=== PATIENT | female | born 1995 | race Caucasian/White ===

== ENCOUNTER 2017-08-19 18:04 | Outpatient (CLI) | payer MEDICAID ==
[~2017-08-19] VITALS: Ht 157.5 cm; Wt 61.1 kg
[2017-08-19 18:31] VITALS: Ht 157.5 cm; Wt 61.1 kg
[2017-08-19 19:00] VITALS: BP 113/55; PULSE 75; RESP 16
--- NOTE | 2017-08-19 19:12 | RADRPT ---
PROCEDURE: US OB. CLINICAL INDICATION: Size and dates , labor TECHNIQUE: Multiple sonographic images of the pelvis and gravid uterus were obtained. The images were reviewed on a PACS workstation. COMPARISON: No prior studies are available for comparison. FINDINGS: There is a single viable intrauterine gestation. Cardiac activity is present with 130 beats per min nahum. There is a vertex presentation. The placenta is anterior. There is no evidence for an abruption or placenta previa. Measurements were made in order to determine age. The results are as follows: BPD =7.2 cm HC =26.9 cm AC =25.6 cm FL =5.5 cm Estimated gestational age of approximately 29 weeks and 2 days based on ultrasound measurements. Clinical age: 29 weeks and 4 days. The estimated date of delivery is 11/02/2017, based on ultrasound measurements. The EFW = 1394 g, 32%, based on LMP age. RPTAT: AA IMPRESSION: Single viable intrauterine gestation of approximately 29 weeks and 2 days based on ultrasound measu rements. .Chris Rossi MD, MD Date Time Electronically viewed and signed by .Chris Rossi MD, on 08/19/2017 19:12 .S/
--- NOTE | 2017-08-19 19:35 | RADRPT ---
PROCEDURE: US OB biophysical profile. Ultrasound cervix CLINICAL INDICATION: decreased movements, PTL TECHNIQUE: Multiple sonographic images of the pelvis were obtained. In addition, transvaginal purnima ges of the cervix were obtained. The images were reviewed on a PACS workstation. COMPARISON: No prior studies are available for comparison. FINDINGS: There is a single viable intrauterine gestation. Cardiac activity is present with 139 beats per min nahum. There is a vertex presentation. The placenta is anterior. There is no evidence of placental abruption. There is a normal amount of amniotic fluid with an KARSON = 17.7 cm. The cervix measures 3.6 cm in length. Biophysical profile: movement 2/2 tone 2/2. breathing 2/2 KARSON 2/2 Total 06/18 RPTAT: AA . IMPRESSION: Normal biophysical profile. Cervix measures 3.6 cm in length. .Chris Rossi MD, MD Date Time Electronically viewed and signed by .Chris Rossi MD, on 08/19/2017 19:35 .S/
[2017-08-19 22:10] LABS: BASOPHILS % 0.2 % (0.0-2.0); EOSINOPHILS # 0.1 10^3/ul (0.0-0.5); EOSINOPHILS % 0.7 % (0.0-7.0); HEMATOCRIT 35.2 % (37.0-47.0); LYMPHOCYTES # 1.8 10^3/ul (0.8-2.9); LYMPHOCYTES % 13.9 % (18.0-55.0); MEAN CORPUSCULAR HEMOGLOBIN 30.5 pg (29.0-33.0); MEAN CORPUSCULAR HGB CONC 34.1 g/dl (32.0-37.0); MEAN CORPUSCULAR VOLUME 89.3 fl (72.0-104.0); MEAN PLATELET VOLUME 9.9 fl (7.4-10.4); MONOCYTE # 0.6 10^3/ul (0.3-0.9); MONOCYTES % 5.1 % (0.0-13.0); NEUTROPHILS % 79.4 % (30.0-74.0); PLATELET COUNT 191 10^3/UL (140-415); RED BLOOD COUNT 3.94 10^6/ul (4.20-5.40); WHITE BLOOD COUNT 12.6 10^3/ul (4.8-10.8)
[2017-08-19 22:18] LABS: ADD UMIC YES; UR ASCORBIC ACID NEGATIVE (NEGATIVE); UR BACTERIA FEW /HPF (NONE SEEN); UR BILIRUBIN (Dip) NEGATIVE (NEGATIVE); UR BLOOD (Dip) 1+ mg/dL (NEGATIVE); UR CLARITY CLOUDY (CLEAR); UR COLOR YELLOW (YELLOW); UR GLUCOSE (Dip) NEGATIVE (NEGATIVE); UR KETONES (Dip) NEGATIVE (NEGATIVE); UR LEUKOCYTE ESTERASE (Dip) 1+ Leu/ul (NEGATIVE); UR MUCUS FEW /HPF (NONE SEEN); UR NITRITE (Dip) NEGATIVE (NEGATIVE); UR RBC 3 /HPF (0-5); UR SPECIFIC GRAVITY (Dip) 1.012 (1.003-1.030); UR SQUAMOUS EPITHELIAL CELL FEW /HPF (FEW); UR TOTAL PROTEIN (Dip) 1+ mg/dl (NEGATIVE); UR UROBILINOGEN (Dip) NEGATIVE (NEGATIVE)
== END 2017-08-19 23:22 | disposition home or self-care (01) ==
LOC: OBT 18:04 → L-D 18:08 → OBT 19:44
PROVIDERS: ATTEND Obstetrics & Gynecology
DX: O42.913 Preterm premature rupture of membranes, unspecified as to length of time between rupture and onset of labor, third trimester (principal); Z3A.29 29 weeks gestation of pregnancy
CPT/HCPCS: 76815; 76817; 76818; 81001; 84112; 85025; Z7500; G0463

== ENCOUNTER 2017-08-19 21:43 | Outpatient (CLI) | payer MEDICAID ==
--- NOTE | 2017-08-20 01:23 | TRIAGE ---
OB Triage Datetime Report Generated by CPN: 08/20/2017 01:22 Datetime: 08/19/2017 21:54 Labor Evaluation Frequency: IRREGULAR Monitor Mode: External Duration (sec)2399: 40-80 Quality: Mild Pattern: Normal: <= 5 Contractions in 10 Minutes Resting Tone Buckingham: Relaxed Heart Rate FHR Baseline Rate: 135 Monitor Mode: External US FHR Baseline Changes: No Baseline Change Variability: Moderate 6-25 bpm Accelerations: 15X15 Decelerations: None Category: Category I Datetime: 08/19/2017 19:29 Labor Evaluation Frequency: 0 Monitor Mode: External Heart Rate FHR Baseline Rate: 135 Monitor Mode: External US FHR Baseline Changes: No Baseline Change Variability: Moderate 6-25 bpm Accelerations: 15X15 Decelerations: None Category: Category I Datetime: 08/19/2017 19:10 Assessment Type: Triage Maternal Assessment Level of Consciousness: Fully Conscious DTR's/Clonus: DTRs 2+; No Clonus Headache: Denies Blurred Vision: No Respiratory Effort: Unlabored; Regular Rhythm; Equal Expansion Breath Sounds, Left: Clear and Equal Breath Sounds, Right: Clear and Equal Nausea/Vomiting: Denies RUQ Epigastric Pain: Denies Lower Extremities Edema: None Degree: None Upper Extremities Edema: None Degree: None Facial Edema: None Fall Risk Assessment History of Falling: (0) No Secondary Diagnosis: (0) No Ambulatory Aid: (0) Bedrest/Nurse Assist IV Therapy: (0) No Gait: (0) Normal/Bedrest/Immobile Mental Status: (0) Oriented to Own Ability Fall Score: 0 Fall Risk Score Definition: No Risk: No action required Datetime: 08/19/2017 19:03 Time of Arrival: 08/19/2017 18:00 EGA: 29.4 Arrived By: Ambulatory Arrived From: Home Chief Complaint: R/O SROM AT 1700 Movement: Present Contractions: Denies/Absent Rupture of Membranes: Unsure Vaginal Bleeding: None Vaginal Discharge: Denies Recent Sexual Intercouse: Denies Abdominal Trauma: Not Applicable Patient Complaints: None Time Provider Notified: 08/19/2017 18:59 Provider Notified: DR. PALMA Initial Plan: SVE Datetime: 08/19/2017 18:52 Labor Evaluation Frequency: 0 Monitor Mode: External Duration (sec)2399: 0 Resting Tone Buckingham: Relaxed Contraction Comments: PT DENIES UC'S Heart Rate FHR Baseline Rate: 135 Monitor Mode: External US Variability: Moderate 6-25 bpm Accelerations: 15X15 Decelerations: None Category: Category I Datetime: 08/19/2017 18:40 Assessment Type: Triage Maternal Assessment Level of Consciousness: Fully Conscious DTR's/Clonus: DTRs 2+; No Clonus Headache: Denies Blurred Vision: No Respiratory Effort: Unlabored; Regular Rhythm; Equal Expansion Breath Sounds, Left: Clear and Equal Breath Sounds, Right: Clear and Equal Nausea/Vomiting: Denies RUQ Epigastric Pain: Denies Lower Extremities Edema: None Degree: None Upper Extremities Edema: None Degree: None Facial Edema: None Fall Risk Assessment History of Falling: (0) No Secondary Diagnosis: (0) No Ambulatory Aid: (0) Bedrest/Nurse Assist IV Therapy: (0) No Gait: (0) Normal/Bedrest/Immobile Mental Status: (0) Oriented to Own Ability Fall Score: 0 Fall Risk Score Definition: No Risk: No action required Datetime: 08/19/2017 18:30 Stage of : OB Triage Assessment Type: Triage Maternal Assessment Level of Consciousness: Fully Conscious DTR's/Clonus: DTRs 2+; No Clonus Headache: Denies Blurred Vision: No Respiratory Effort: Unlabored; Regular Rhythm; Equal Expansion Breath Sounds, Left: Clear and Equal Breath Sounds, Right: Clear and Equal Nausea/Vomiting: Denies RUQ Epigastric Pain: Denies Lower Extremities Edema: None Degree: None Upper Extremities Edema: None Degree: None Facial Edema: None Temperature Route: Axillary Fall Risk Assessment History of Falling: (0) No Secondary Diagnosis: (0) No Ambulatory Aid: (0) Bedrest/Nurse Assist IV Therapy: (0) No Gait: (0) Normal/Bedrest/Immobile Mental Status: (0) Oriented to Own Ability Fall Score: 0 Fall Risk Score Definition: No Risk: No action required Datetime: 08/19/2017 18:29 Vaginal Exam Dilatation (cms): 0.0 Effacement (%): 0 Station: -3 Exam By: BERRY CASTRO
--- NOTE | 2017-08-20 03:47 | TRIAGE ---
OB Triage Datetime Report Generated by CPN: 08/20/2017 03:47 Datetime: 08/19/2017 23:04 Stage of : OB Triage
--- NOTE | 2017-08-20 07:25 | PN ---
Triage Information Date/Time Reason for visit: Leakage of fluid Weeks of Gestation 29 4/7 /Para G1 Diabetes: none Hypertention: none Additional information 21 Year-old G1 with SIUP at 29 4/7 wks presents with a chief complaint of possible LOF. She states good movement. She denies nausea, vomiting, shortness of breath, chest pain, abdominal pain, headache, visual changes, vaginal bleeding. Objective Heart Rate: 140's Contractions: None Exam General: Patient appears well, alert and oriented, NAD, appropriate mood and affect ABD: gravid, soft, non-tender. Back: No CVA tenderness (B/L) LE: No clubbing, cyanosis, edema, thigh or calf tenderness bilaterally FHT: 140 bpm , moderate variability with acceleration, no deceleration-category I Contractions: None Speculum exam: No vaginal bleeding or LOF seen, Neg Nitrazine and ROM+ SVE: closed/thick/high/ceph/intact membrane Disposition: Discharge Assessment/Plan 21 Year-old G1 with SIUP at 29 4/7 wks with a chief complaint of possible LOF. Neg exam, nml KARSON on us - FHR: No sign of metabolic acidosis- Category I - Continuous EFM, toco - Contractions: None. - Reactive NST. BPP: 10/10 - Symptoms and sign of labor, preeclampsia, kick count discussed with patient, she voiced understanding. All of her questions answered. - Patient was discharged home in stable condition with the appropriate discharge instructions provided. I would like patient to have close follow-up with her primary physician or outpatient clinic in 1-2 days or return to the ER for worsening symptoms or any other urgent concerns. OLE DSOUZA Aug 20, 2017 07:25
== END 2017-08-19 23:22 | disposition home or self-care (01) ==
LOC: OBT 21:43 → L-D 21:46 → OBT 23:22
PROVIDERS: ATTEND Obstetrics & Gynecology
DX: O42.913 Preterm premature rupture of membranes, unspecified as to length of time between rupture and onset of labor, third trimester (principal); Z3A.29 29 weeks gestation of pregnancy

== ENCOUNTER 2017-10-22 19:24 | Emergency (ER) | payer MEDICAID ==
[~2017-10-22] VITALS: Ht 167.6 cm; Wt 86.5 kg
[2017-10-22 20:35] VITALS: Ht 167.6 cm; Wt 86.5 kg
--- NOTE | 2017-10-23 00:49 | ERD ---
ER Documentation Chief Complaint Chief Complaint REFERRED BY FOR LEFT CALF PAIN, HERE FOR ULTRASOUND HPI 22 yr female complaining of into left calf 1 day. Patient was sent here by Dr. Mulligan for ultrasound. Patient is 39 weeks . Denies any vaginal bleeding however states she does having pelvic cramping while awaiting in the emergency room. Denies any shortness of breath. ROS All systems reviewed and are negative except as per history of present illness. Medications Home Meds No Active Prescriptions or Reported Meds Allergies Allergies: Coded Allergies: No Known Allergy (Unverified , 10/22/17) PMhx/Soc Medical and Surgical Hx: pt denies Surgical Hx Hx Miscellaneous Medical Probl: Yes (gestational diabetes) Hx Alcohol Use: No Hx Substance Use: No Hx Tobacco Use: No Smoking Status: Never smoker Physical Exam Vitals Vital Signs Date Time Temp Pulse Resp B/P Pulse Ox O2 Delivery O2 Flow Rate FiO2 10/22/17 20:35 98.5 82 18 119/79 100 Physical Exam GENERAL: The patient is well-appearing, well-nourished, in no acute distress CHEST: Clear to auscultation bilaterally. There are no rales, wheezes or rhonchi. HEART: Regular rate and rhythm. No murmurs, clicks, rubs or gallops. No S3 or S4. ABDOMEN:Soft, nontender and nondistended. Good bowel sounds. No rebound or guarding. No gross peritonitis. No gross organomegaly or masses. No Tello sign or McBurney point tenderness. BACK: No midline or flank tenderness. EXTREMITIES: No swelling to left calf. Negative homans sign. No ttp to left calf. Procedures/MDM ER Course: 22-year-old female presenting with left calf tenderness. During my examination patient stated that she was beginning to feel some continued traction type sensations and mild pelvic pain. Patient was sent immediately to labor and delivery for monitoring. I did not proceed with my examination and no orders were tested with the ER. Patient was noted to labor and delivery without complication. MDM: 22-year-old female complaining of left calf tenderness. My exam was within normal limits and I have low suspicion for DVT however patient was sent to labor and delivery before official ultrasound was performed to rule out DVT. I have low suspicion for DVT but it cannot be confidently excluded at this time. Patient was sent to labor and delivery as she began feeling contraction type sensations in the emergency room with pelvic pain. Patient was stable at the time of movement to the labor and delivery department. Departure Diagnosis: Primary Impression: Leg pain Condition: Stable JOSE MANUEL LOCKHART PA-C Oct 23, 2017 00:49
== END 2017-10-22 23:19 | disposition home or self-care (01) ==
LOC: FTE 19:24
DX: M79.605 Pain in left leg (principal)
CPT/HCPCS: 99282

== ENCOUNTER 2017-10-22 22:23 | Outpatient (CLI) | payer MEDICAID ==
--- NOTE | 2017-10-23 00:34 | RADRPT ---
PROCEDURE: US DVT. CLINICAL INDICATION: Bilateral lower extremity pain. TECHNIQUE: Multiple longitudinal and transverse images of the bilateral lower extremity veins were obtained with friedman scale and color Doppler imaging. 2D grayscale measurements with compression, co meron Doppler flow, and augmentation was performed. COMPARISON: No prior studies are available for comparison. FINDINGS: The bilateral common femoral, superficial femoral and popliteal veins are normally compressible thro ughout. Color flow demonstrates normal filling of the vessel. Normal waveforms are visualized and there is normal response to augmentation. IMPRESSION: 1. No evidence of a deep vein thrombosis involving either lower extremity. RPTAT: HMVK .Rolando Abebe MD, MD Date Time Electronically viewed and signed by .Rolando Abebe MD, on 10/23/2017 00:34 .K/
--- NOTE | 2017-10-23 00:54 | PN ---
Triage Information Date/Time Reason for visit: left calf pain Weeks of Gestation 37 weeks /Para Diabetes: gestational Diabetes management: diet controlled Hypertention: none Objective Heart Rate: 130's Heart Rate Comments Category I Contractions: None Results/Medications Imaging Results Venous Doppler, no evidence of DVT involving either lower extremity. Disposition: Discharge Assessment/Plan Antepartum testing on 10/25/2017. ENRRIQUE PALMA MD Oct 23, 2017 00:54
--- NOTE | 2017-10-23 01:15 | TRIAGE ---
OB Triage Datetime Report Generated by CPN: 10/23/2017 01:14 Datetime: 10/22/2017 23:04 Time of Arrival: 10/22/2017 22:19 EGA: 38.5 Arrived By: Wheelchair Arrived From: Home Chief Complaint: Leg pain Movement: Present Contractions: Irregular Contractions: Off and on today Rupture of Membranes: Denies Vaginal Bleeding: None Vaginal Discharge: Denies Recent Sexual Intercouse: Denies Abdominal Trauma: Not Applicable Patient Complaints: Other Initial Plan: CEFM Datetime: 10/22/2017 23:01 Stage of : OB Triage Assessment Type: Triage Maternal Assessment Level of Consciousness: Fully Conscious DTR's/Clonus: DTRs 2+; No Clonus Headache: Denies Blurred Vision: No Respiratory Effort: Unlabored; Regular Rhythm; Equal Expansion Breath Sounds, Left: Clear and Equal Breath Sounds, Right: Clear and Equal Nausea/Vomiting: Denies RUQ Epigastric Pain: Denies Lower Extremities Edema: Left Lower Extremity Degree: 1+ Upper Extremities Edema: None Degree: None Facial Edema: None Temperature Route: Oral Fall Risk Assessment History of Falling: (0) No Secondary Diagnosis: (0) No Ambulatory Aid: (0) Bedrest/Nurse Assist IV Therapy: (0) No Gait: (0) Normal/Bedrest/Immobile Mental Status: (0) Oriented to Own Ability Fall Score: 0 Fall Risk Score Definition: No Risk: No action required Pain Assessment Pain Presence: Constant Pain Type: Cramping; Sharp Pain Location: Left Leg Datetime: 08/19/2017 19:10 Fall Score: 0 Fall Risk Score Definition: No Risk: No action required Datetime: 08/19/2017 19:03 EGA: 29.4 Datetime: 08/19/2017 18:40 Fall Score: 0 Fall Risk Score Definition: No Risk: No action required Datetime: 08/19/2017 18:30 Fall Score: 0 Fall Risk Score Definition: No Risk: No action required
== END 2017-10-23 00:53 | disposition home or self-care (01) ==
LOC: OBT 22:23 → L-D 22:25 → OBT 10-23 00:53
PROVIDERS: ATTEND Obstetrics & Gynecology
DX: O26.893 Other specified pregnancy related conditions, third trimester (principal); Z3A.37 37 weeks gestation of pregnancy; M79.662 Pain in left lower leg; O24.410 Gestational diabetes mellitus in pregnancy, diet controlled
CPT/HCPCS: 93970; Z7500; G0463

== ENCOUNTER 2017-10-29 19:33 | Inpatient (IN) | payer MEDICAID ==
[~2017-10-29] VITALS: Ht 154.9 cm; Wt 71.8 kg
[2017-10-29 20:18] VITALS: Ht 154.9 cm; Wt 71.8 kg
[2017-10-29 20:19] VITALS: BP 123/69; PULSE 69; RESP 18
[2017-10-29] MEDS ORDERED: PREN-93 PO (20:22)
[2017-10-29] MEDS ORDERED: HYDROCODONE/APAP (5/325) TAB PO PRN (20:30)
[2017-10-29] MEDS ORDERED: BUTORPHANOL 2 MG INJ IV PRN ×2 (20:30)
[2017-10-29] MEDS ORDERED: CARBOPROST 250 MCG INJ IM PRN (20:30)
[2017-10-29] MEDS ORDERED: OXYTOCIN 30 UNITS/LR 500 ML IV PRN (20:30)
[2017-10-29] MEDS ORDERED: OXYTOCIN 30 UNITS/LR 500 ML IV SCH ×2 (20:30)
[2017-10-29] MEDS ORDERED: METHYLERGONOVINE 0.2 MG INJ IM PRN (20:30)
[2017-10-29] MEDS ORDERED: LIDOCAINE 1% (MPF) 30 ML INJ INJ PRN (20:30)
[2017-10-29] MEDS ORDERED: MISOPROSTOL 200 MCG TAB PR PRN (20:30)
[2017-10-29] MEDS ORDERED: IBUPROFEN 600 MG TAB PO PRN (20:30)
[2017-10-29] MEDS ORDERED: AMPICILLIN 2 GM/NS (PMX) 100 ML IV ONE (21:00)
[2017-10-29] MEDS: LACTATED RINGER'S 1,000 ML IV SCH (21:22)
[2017-10-29] MEDS: DEXTROSE 5%-LR 1,000 ML IV SCH (21:23)
[2017-10-29] MEDS: MISOPROSTOL 25 MCG CAPSULE PO SCH (21:39)
[2017-10-29 22:03] LABS: BASOPHILS % 0.2 % (0.0-2.0); EOSINOPHILS # 0.1 10^3/ul (0.0-0.5); EOSINOPHILS % 1.2 % (0.0-7.0); HEMATOCRIT 36.1 % (37.0-47.0); HEMOGLOBIN 12.4 g/dl (12.0-16.0); LYMPHOCYTES # 1.6 10^3/ul (0.8-2.9); LYMPHOCYTES % 19.5 % (18.0-55.0); MEAN CORPUSCULAR HEMOGLOBIN 28.8 pg (29.0-33.0); MEAN CORPUSCULAR HGB CONC 34.3 g/dl (32.0-37.0); MEAN PLATELET VOLUME 11.2 fl (7.4-10.4); MONOCYTE # 0.8 10^3/ul (0.3-0.9); MONOCYTES % 9.4 % (0.0-13.0); NEUTROPHIL # 5.6 10^3/ul (1.6-7.5); NEUTROPHILS % 69.2 % (30.0-74.0); PLATELET COUNT 181 10^3/UL (140-415); RED CELL DISTRIBUTION WIDTH 13.2 % (11.5-14.5); WHITE BLOOD COUNT 8.2 10^3/ul (4.8-10.8)
[2017-10-29 22:11] LABS: INR 0.87; PROTIME 11.9 Sec (11.9-14.9); PT RATIO 0.9
[2017-10-29 22:12] LABS: PARTIAL THROMBOPLASTIN TIME 26.7 Sec (25.0-35.0)
--- NOTE | 2017-10-29 23:14 | RADRPT ---
PROCEDURE: US OB limited position. CLINICAL INDICATION: Position. Clinical estimate gestational age of 39 weeks 5 days with estimate d date of delivery 10/31/2017 TECHNIQUE: Multiple sonographic images of the pelvis were obtained. The images were reviewed on a PACS workstation. COMPARISON: 10/29/2017 FINDINGS: There is a single live intrauterine gestation. Cardiac activity is present with 146 beats per minut e. There is a cephalic position. The placenta is anterior and grade II - III. There is no evidence for an abruption. IMPRESSION: Single live intrauterine gestation in cephalic position. RPTAT: HJES .Forrest Denney MD, MD Date Time Electronically viewed and signed by .Forrest Denney MD, MD on 10/29/2017 23:13 .S/
[2017-10-30] MEDS: AMPICILLIN 1 GM/NS (PMX) 50 ML IV SCH ×6 (02:29→21:05)
[2017-10-30] MEDS: MISOPROSTOL 25 MCG CAPSULE PO SCH ×4 (02:59→21:00)
[2017-10-30] MEDS ORDERED: OXYTOCIN 30 UNITS/LR 500 ML IV SCH (04:00)
[2017-10-30] MEDS: DEXTROSE 5%-LR 1,000 ML IV SCH (08:07)
[2017-10-30] MEDS: LACTATED RINGER'S 1,000 ML IV SCH ×2 (10:41→19:17)
[2017-10-31] MEDS: AMPICILLIN 1 GM/NS (PMX) 50 ML IV SCH ×6 (01:00→20:55)
[2017-10-31] MEDS: MISOPROSTOL 25 MCG CAPSULE PO SCH ×2 (01:01→05:02)
[2017-10-31] MEDS: LACTATED RINGER'S 1,000 ML IV SCH ×4 (04:13→19:07)
[2017-10-31] MEDS: DEXTROSE 5%-LR 1,000 ML IV PRN ×2 (08:12→17:03)
[2017-10-31] MEDS ORDERED: OXYTOCIN 30 UNITS/LR 500 ML IV SCH (09:00)
--- NOTE | 2017-10-31 09:09 | RADRPT ---
PROCEDURE: US OB. CLINICAL INDICATION: Size and dates , GDM TECHNIQUE: Multiple sonographic images of the pelvis and gravid uterus were obtained. The images were reviewed on a PACS workstation. COMPARISON: 10/29/17 FINDINGS: There is a single viable intrauterine gestation. Cardiac activity is present with 125 beats per min nahum. There is a vertex presentation. The placenta is anterior. There is no evidence for an abruption or placenta previa. Measurements were made in order to determine age. The results are as follows: BPD =9.1 cm HC =34.1 cm AC =36.5 cm FL =7.4 cm Estimated gestational age of approximately 38 weeks and 5 days based on ultrasound measurements. Clinical age: 40 weeks and 0 days. The estimated date of delivery is 11/09/17, based on ultrasound measurements. The EFW = 3733 g, 59.8%, based on LMP age. RPTAT: AA IMPRESSION: Single viable intrauterine gestation of approximately 38 weeks and 5 days based on ultrasound measu rements. .Chris Rossi MD, Date Time Electronically viewed and signed by .Chris Rossi MD, on 10/31/2017 09:09 .S/
--- NOTE | 2017-10-31 14:12 | NSTRPT ---
NST Information Datetime Report Generated by CPN: 10/31/2017 14:11 Datetime: 10/29/2017 10:48 NST Information EGA: 39.5 Time on Monitor: 10/29/2017 11:28 Time off Monitor: 10/29/2017 11:50 NST Duration (Min): 22 Test and Monitor Explained: Monitor Explained; Test Explained; Verbalized Understanding Pulse: 64 Resp: 17 SBP: 116 DBP: 61 Test Evaluation NST Interventions: Reposition Patient Patient States Movement: Present Contraction Frequency: occasional, denies FHR Baseline : 140 Variability: Moderate 6-25bpm Accelerations: 15X15 Decelerations: None FHR Category: Category I NST Results: Reactive Comments: To u/s, KARSON 9.1cm, cephalic FBS 87 Electronically Signed By E-Signature: with User ID: [id number] Datetime: 10/25/2017 10:50 NST Information EGA: 39.1 NST Duration (Min): 34 Datetime: 10/22/2017 13:05 NST Information EGA: 38.5 NST Duration (Min): 23 Datetime: 10/18/2017 11:30 NST Information EGA: 38.1 NST Duration (Min): 31 Datetime: 10/11/2017 10:50 NST Information EGA: 37.1 NST Duration (Min): 25 Datetime: 09/10/2017 13:02 NST Information EGA: 32.5 NST Duration (Min): 31
[2017-11-01] MEDS: LACTATED RINGER'S 1,000 ML IV SCH ×4 (00:27→22:59)
[2017-11-01] MEDS ORDERED: FENTAnyl 2MCG/ML-ROPIV 0.2% 100 ML ONE (00:31)
[2017-11-01] MEDS ORDERED: KETOROLAC 30 MG INJ IV PRN ×2 (01:00→11:30)
[2017-11-01] MEDS ORDERED: DIPHENHYDRAMINE 50 MG INJ IV PRN ×3 (01:00→15:00)
[2017-11-01] MEDS ORDERED: NALOXONE (0.4 MG/ML) INJ IV PRN ×3 (01:00→15:00)
[2017-11-01] MEDS ORDERED: HYDROmorphONE 0.5 MG/0.5 ML SYG IV PRN ×2 (01:00)
[2017-11-01] MEDS ORDERED: FENTAnyl 2MCG/ML-ROPIV 0.2% 100 ML BAG EPI SCH (01:00)
[2017-11-01] MEDS ORDERED: ONDANSETRON 4 MG INJ IV PRN ×3 (01:00→15:00)
[2017-11-01] MEDS: AMPICILLIN 1 GM/NS (PMX) 50 ML IV SCH ×3 (01:18→09:01)
[2017-11-01] MEDS: DEXTROSE 5%-LR 1,000 ML IV PRN (05:06)
[2017-11-01] MEDS ORDERED: OXYTOCIN 30 UNITS/LR 500 ML BAG IV ONE (07:00)
[2017-11-01] MEDS ORDERED: CEFAZOLIN 2 GM/50 ML (PMX) 50 ML IVPB ONE ×2 (09:20→09:30)
--- NOTE | 2017-11-01 09:51 | QN ---
Documentation Comment Patient has progressed to 4-5 cm dilation. Recurrent heart decelerations noted. Oxytocin was discontinued. Oxygen via mask was given. Amnioinfusion was given. heart tracing remains Category II remote from delivery. patient is for delivery by primary . Risks, benefits and alternatives were explained to the patient who stated she understood and gave informed consent for the procedure. ENRRIQUE PALMA MD Nov 01, 2017 09:51
[2017-11-01] MEDS ORDERED: morphine SULFATE/PF (10 MG/10 ML) INJ ONE (10:03)
[2017-11-01] MEDS ORDERED: ONDANSETRON 4 MG INJ ONE (10:11)
[2017-11-01] MEDS ORDERED: PHENYLephrine (100 MCG/ML) 5ML SYG ONE (10:12)
[2017-11-01] MEDS ORDERED: OXYTOCIN 10 UNIT INJ ONE (10:12)
--- NOTE | 2017-11-01 10:52 | HP ---
Date/Time of Note Date/Time of Note DATE: 11/01/17 TIME: 10:51 OB - History Hx of Present Chief Complaint: induction of labor Estimated Due Date: Oct 31, 2017 : 2 Para: 0 Spontaneous : 1 Therapeutic : 0 Care: Limited Care Ultrasounds: Normal mid trimester US Obstetrical Complications: Gestational Diabetes Medical Complications: None Past Family/Social History * Past Medical, Surgical, Family and Obstetric Histories reviewed from chart. GBS Status: Positive OB Admission Exam Vital Signs Vital Signs Vital Signs Date Time Temp Pulse Resp B/P Pulse Ox O2 Delivery O2 Flow Rate FiO2 10/29/17 20:19 98.3 69 18 123/69 Room Air Physical Exam HEENT: WNL Heart: Rhythm Normal Lungs: Clear, Equal Abdomen: WNL Extremities: Normal Reflexes: Normal Cervical Dilatation: None Effacement: 25% Station: -2 Membranes: Intact Heart Rate: 120's Accelerations: Accelerations Present Decelerations: No Decelerations Varibility: Moderate Last 72 hourBlood Glucose Bedside Glucose - 72 Hours Test 10/29/17 21:18 10/29/17 23:21 10/30/17 01:28 10/30/17 03:06 Bedside Glucose 75mg/dL (70-220) 75mg/dL (70-220) 110mg/dL (70-220) 87mg/dL (70-220) Test 10/30/17 05:45 10/30/17 06:50 10/30/17 09:03 10/30/17 12:33 Bedside Glucose 94mg/dL (70-220) 79mg/dL (70-220) 74mg/dL (70-220) 78mg/dL (70-220) Test 10/30/17 15:33 10/30/17 19:09 10/31/17 08:03 10/31/17 10:03 Bedside Glucose 100mg/dL (70-220) 92mg/dL (70-220) 65mg/dL (70-220) L 68mg/dL (70-220) L Test 10/31/17 12:11 10/31/17 14:06 10/31/17 15:54 10/31/17 18:03 Bedside Glucose 73mg/dL (70-220) 73mg/dL (70-220) 93mg/dL (70-220) 89mg/dL (70-220) Test 10/31/17 21:00 10/31/17 23:06 11/01/17 01:20 11/01/17 03:26 Bedside Glucose 77mg/dL (70-220) 87mg/dL (70-220) 68mg/dL (70-220) L 65mg/dL (70-220) L Test 11/01/17 05:03 11/01/17 07:24 Bedside Glucose 75mg/dL (70-220) 75mg/dL (70-220) Last 72 hours Lab Results CBC & BMP 10/29/17 21:22 OB Assessment/Plan Reason for admission: induction of labor Plan: Induction Induction Method: per Misoprostol Protocol ENRRIQUE PALMA MD Nov 01, 2017 10:52
--- NOTE | 2017-11-01 10:58 | OPR ---
Operative Report Planned Procedure Procedure date Nov 01, 2017 Procedure(s) Primary low transverse Performed by Enrrique Palma MD Heat Treater Dr Perez Anesthesiologist: JASPER THORNE MD Pre-procedure diagnosis Category II tracing remote from delivery Anesthesia Type: epidural Post-Procedure Post-procedure diagnosis Same Findings Live Baby [], Apgars [] and [], weight [], position [], [] presentation []cord. Estimated Blood Loss: 500 - 600 mls (600 ml) Specimen(s) placenta Grafts/Implant(s) none Complication(s) none Pt Condition post procedure: stable Disposition: PACU Procedure Description After epidural anesthesia had been dosed and tested, the patient was placed supine on the Operating Room table and prepped and draped in the usual sterile fashion for a section. A Pfannenstiel incision was made through the abdomen and carried down to the level of the fascia. The fascia was incised transversely and then the rectus muscle was dissected off the fascia and split bluntly in the midline. The peritoneum was the entered bluntly. The bladder flap was created and then a low segment transverse incision was made with a knife on the uterus until the amniotic fluid was encountered. The incision was widened with bandage scissors. A hand was inserted elevating the vertex and then the head delivered with assistance of fundal pressure.. The nares and oropharynx were bulb suctioned, and the remainder of the infant was delivered out of the maternal abdomen. . The cord was doubly clamped and cut, and the infant handed off to the awaiting resuscitation team who was present for delivery. The placenta was then manually extracted and the interior uterus was cleaned with a dry lap sponge. The uterus was exteriorized, and the incision of the uterus closed with a running interlocking stitch of Monocryl suture. The uterus was replaced in the maternal abdomen. The abdomen was cleared of clots. The fascia was closed with a running suture of #1 Vicryl suture meeting in the midline. The subcutaneous tissue was made hemostatic with Bovie cautery, and the skin approximated using kelsey. The patient tolerated the procedure well. All sponge and instrument counts were correct. She was taken to the recovery room in stable condition. ENRRIQUE PALMA MD Nov 01, 2017 10:58
[2017-11-01] MEDS ORDERED: morphine 2 MG INJ IV PRN (11:30)
[2017-11-01] MEDS ORDERED: OXYTOCIN 30 UNITS/LR 500 ML IV SCH (14:45)
[2017-11-01] MEDS ORDERED: OXYCODONE/ACETAMINOPHEN (5/325) TAB PO PRN ×2 (15:00)
[2017-11-01] MEDS ORDERED: CARBOPROST 250 MCG INJ IM PRN (15:00)
[2017-11-01] MEDS ORDERED: OXYTOCIN 30 UNITS/LR 500 ML IV PRN (15:00)
[2017-11-01] MEDS ORDERED: MISOPROSTOL 200 MCG TAB PR PRN (15:00)
[2017-11-01] MEDS ORDERED: LANOLIN 7 GM TUBE TOP PRN (15:00)
[2017-11-01] MEDS ORDERED: METHYLERGONOVINE 0.2 MG INJ IM PRN (15:00)
[2017-11-01 16:50] VITALS: BP 119/72; PULSE 82; RESP 20
[2017-11-01 17:28] VITALS: BP 121/77; PULSE 85; RESP 18
[2017-11-01 20:00] VITALS: BP 108/74; PULSE 81; RESP 20
[2017-11-01] MEDS: KETOROLAC 30 MG INJ IV PRN (22:55)
[2017-11-02 02:26] VITALS: BP 110/72; PULSE 88; RESP 20
[2017-11-02] MEDS: LACTATED RINGER'S 1,000 ML IV SCH ×3 (07:00→22:45)
[2017-11-02 08:15] VITALS: BP 134/78; PULSE 63; RESP 18
[2017-11-02] MEDS: SENNA/DOCUSATE NA (8.6MG/50MG) TAB PO SCH ×2 (09:00→21:41)
[2017-11-02] MEDS: KETOROLAC 30 MG INJ IV PRN (10:34)
[2017-11-02 11:26] LABS: BASOPHILS % 0.3 % (0.0-2.0); EOSINOPHILS % 0.4 % (0.0-7.0); HEMATOCRIT 35.3 % (37.0-47.0); HEMOGLOBIN 12.1 g/dl (12.0-16.0); LYMPHOCYTES # 1.2 10^3/ul (0.8-2.9); LYMPHOCYTES % 11.5 % (18.0-55.0); MEAN CORPUSCULAR HGB CONC 34.3 g/dl (32.0-37.0); MEAN CORPUSCULAR VOLUME 84.7 fl (72.0-104.0); MONOCYTE # 0.5 10^3/ul (0.3-0.9); MONOCYTES % 4.7 % (0.0-13.0); NEUTROPHIL # 8.6 10^3/ul (1.6-7.5); NEUTROPHILS % 82.7 % (30.0-74.0); PLATELET COUNT 163 10^3/UL (140-415); RED BLOOD COUNT 4.17 10^6/ul (4.20-5.40); RED CELL DISTRIBUTION WIDTH 13.3 % (11.5-14.5); WHITE BLOOD COUNT 10.4 10^3/ul (4.8-10.8)
--- NOTE | 2017-11-02 13:59 | QN ---
Documentation Comment No complaint Afebrile VS Abdomen soft ND POD #1 Stable Ambulate Advance diet. ENRRIQUE PALMA MD Nov 02, 2017 13:59
[2017-11-02 16:00] VITALS: BP 124/75; PULSE 86; RESP 16
[2017-11-02 19:40] VITALS: BP 118/80; PULSE 78; RESP 20
[2017-11-02] MEDS: IBUPROFEN 800 MG TAB PO SCH (21:41)
[2017-11-02] MEDS ORDERED: VITAMIN A & D 5 GM OINT PACKET TOP ONE (21:58)
[2017-11-03 04:00] VITALS: BP 109/63; PULSE 63; RESP 19
[2017-11-03] MEDS: IBUPROFEN 800 MG TAB PO SCH ×3 (05:56→21:35)
[2017-11-03 08:10] VITALS: BP 116/71; PULSE 62; RESP 18
[2017-11-03] MEDS: SENNA/DOCUSATE NA (8.6MG/50MG) TAB PO SCH ×2 (08:58→21:35)
[2017-11-03] MEDS ORDERED: INFLUENZA VIRUS VACCINE 0.5 ML (DISPENSING) IM* ONE (09:00)
--- NOTE | 2017-11-03 11:55 | DS ---
Date/Time of Note Date/Time of Note DATE: 11/03/17 TIME: 11:54 Obstetrical Discharge Record Final Diagnosis Final Diagnosis: Term delivered Section Section: Primary Primary Indication Category II tracing Complications Gestational Diabetes Induction: Yes Condition on Discharge Physical Assessment Voiding: Yes Bowel Movement: Yes Breast: Soft, non-tender, Filling Fundus: Firm Abdomen and Incision: incision intact Calf Tenderness: No Patient Condition: Stable ENRRIQUE PALMA MD Nov 03, 2017 11:55
[2017-11-03 16:20] VITALS: BP 114/68; PULSE 71; RESP 18
[2017-11-03 20:10] VITALS: BP 117/56; PULSE 65; RESP 18
[2017-11-04 04:00] VITALS: BP 118/77; PULSE 69; RESP 17
[2017-11-04] MEDS: IBUPROFEN 800 MG TAB PO SCH (05:39)
[2017-11-04 08:00] VITALS: BP 116/72; PULSE 57; RESP 16
[2017-11-04] MEDS: SENNA/DOCUSATE NA (8.6MG/50MG) TAB PO SCH (08:55)
[2017-11-04] MEDS ORDERED: DIPHTH/TET/ACEL PERTUSS (ADULT) 0.5 ML VIAL IM* ONE (09:00)
== END 2017-11-04 11:59 | disposition home or self-care (01) | DRG 766 ==
LOC: OBT 19:33 → L-D 19:34 → OBT 19:34 → L-D 19:41 → EDSTATUS 10-31 19:40 → L-D 11-01 09:45 → PP1 11-01 16:35
PROVIDERS: ADMIT Obstetrics & Gynecology; ATTEND Obstetrics & Gynecology
PROC: 3E033VJ Introduction of Other Hormone into Peripheral Vein, Percutaneous Approach (ICD-10-PCS; 2017-10-29)
PROC: 10D00Z1 Extraction of Products of Conception, Low, Open Approach (ICD-10-PCS; principal; 2017-11-01)
DX: O24.420 Gestational diabetes mellitus in childbirth, diet controlled (principal); O99.824 Streptococcus B carrier state complicating childbirth; O76 Abnormality in fetal heart rate and rhythm complicating labor and delivery; Z37.0 Single live birth; Z3A.39 39 weeks gestation of pregnancy
CPT/HCPCS: 62319; 76815; 76816; 82962; 85025; 85610; 85730; 86592; 86850; 86900; 86901; 87340; 90686; 90715; 99464; J0290; J0595; J0690; J1885; J2270; J2274; J2370; J2405; J2590; J3010; J7120; J7121